=== PATIENT | male | born 1995 | race Caucasian/White ===

== ENCOUNTER 2017-05-12 09:13 | Emergency (ER) | payer OTHER ==
[2017-05-12] MEDS ORDERED: DIPH/PERTUSS(ACELL)/TETANUS VAC/PF 0.5 ML SYR (>=10YO) IM ONE (10:02)
[2017-05-12] MEDS ORDERED: OXYCODONE-ACETAMINOPHEN 5-325 MG TABLET PO ONE (10:02)
[2017-05-12] MEDS ORDERED: SILVER SULFADIAZINE 1% CREAM 400 GM TP ONE (10:03)
[2017-05-12] MEDS ORDERED: HYDROCODONE/ACETAMINOPHEN 5-325 MG TABLET PO ONE (10:37)
[2017-05-12] MEDS ORDERED: ONDANSETRON 4 MG TAB.RAPDIS PO ONE (10:37)
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
[2017-05-12 13:02] VITALS: BP 123/69
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
== END 2017-05-12 13:30 | disposition home or self-care (01) ==
LOC: ER 09:13
PROC: 2W3RX1Z Immobilization of Left Lower Leg using Splint (ICD-10-PCS; principal; 2017-05-12)
DX: S93.402A Sprain of unspecified ligament of left ankle, initial encounter (principal); S73.101A Unspecified sprain of right hip, initial encounter; S40.812A Abrasion of left upper arm, initial encounter; S40.811A Abrasion of right upper arm, initial encounter; S80.812A Abrasion, left lower leg, initial encounter; S80.811A Abrasion, right lower leg, initial encounter; S51.831A Puncture wound without foreign body of right forearm, initial encounter; V28.4XXA Motorcycle driver injured in noncollision transport accident in traffic accident, initial encounter; Y92.410 Unspecified street and highway as the place of occurrence of the external cause; Z88.6 Allergy status to analgesic agent; Z23 Encounter for immunization
CPT/HCPCS: 99284; 90471; 73610; 73080; 73502; 90715; L1902; S0119; J3490